=== PATIENT | female | born 1955 | race Caucasian/White ===

== ENCOUNTER 2019-08-01 14:38 | Outpatient (CLI) | payer MEDICARE, OTHER, SELFPAY ==
--- NOTE | 2019-08-01 14:47 | XR_ITS ---
WS: [id number] LEFT KNEE: 3 VIEW(S) TECHNIQUE: AP, oblique(s) and lateral. HISTORY: PAIN IN LEFT KNEE COMPARISON: None available. No fracture or dislocation. Mild narrowing of the medial and patellofemoral joint spaces. Small hypertrophic osteophytes along th e joint lines. No joint effusion. Curvilinear calcification the soft tissues posterior to the knee. Vascular calcification. XR/XR knee LT 3V* [id number] IMPRESSION: Mild medial and patellofemoral osteoarthritis. No fracture identified.
== END 2019-08-01 14:39 | disposition home or self-care (01) ==
LOC: RADWPI 14:45
PROVIDERS: Family Provider Family Medicine; PCP Family Medicine; Visit Provider Family Medicine
DX: M25.562 Pain in left knee (principal); M17.12 Unilateral primary osteoarthritis, left knee
CPT/HCPCS: 73562

== ENCOUNTER 2019-12-12 14:04 | Outpatient (CLI) | payer MEDICARE, OTHER, SELFPAY ==
--- NOTE | 2019-12-12 14:14 | MM_ITS ---
WS: [id number] BILATERAL SCREENING DIGITAL MAMMOGRAM WITH CAD HISTORY: SCREENING COMPARISON: 09/01/2018 and 07/03/2017 and 05/02/2016 Bilateral CC and MLO views submitted. Computer aided detection analyzed. Breast composition: There are scattered areas of fibroglandular density. No suspicious masses, microc alcifications or architectural distortion. Bilateral breast arterial calcifications. MM/[place] [id number] IMPRESSION: BI-RADS: 2-Benign FOLLOW UP: 1 Year Follow-up
== END 2019-12-12 14:05 | disposition home or self-care (01) ==
LOC: RADSHAW 14:08
PROVIDERS: PCP Family Medicine; Visit Provider Family Medicine
DX: Z12.31 Encounter for screening mammogram for malignant neoplasm of breast (principal)
CPT/HCPCS: 77067

== ENCOUNTER 2021-01-03 08:40 | Outpatient (CLI) | payer MEDICARE, OTHER, SELFPAY ==
--- NOTE | 2021-01-03 08:45 | MM_ITS ---
WS: [email or web address] BILATERAL SCREENING DIGITAL MAMMOGRAM WITH CAD HISTORY: SCREENING COMPARISON: 12/12/2019, 09/01/2018, 07/03/2017 Bilateral CC and MLO views submitted. Computer aided detection analyzed. Breast composition: There are scattered areas of fibroglandular density. No suspicious masses, microc alcifications or architectural distortion. Benign breast arterial calcifications within each breast. No change in the parenchymal pattern. MM/[place] [id number] IMPRESSION: BI-RADS: 2-Benign FOLLOW UP: 1 Year Follow-up
== END 2021-01-03 08:41 | disposition home or self-care (01) ==
LOC: RADSHAW 08:42
PROVIDERS: PCP Family Medicine; Visit Provider Family Medicine
DX: Z12.31 Encounter for screening mammogram for malignant neoplasm of breast (principal)
CPT/HCPCS: 77067

== ENCOUNTER 2021-04-22 09:45 | Outpatient (CLI) | payer MEDICARE, OTHER, SELFPAY ==
--- NOTE | 2021-04-22 10:01 | XR_ITS ---
WS: [id number] Exam: XR DEXA axial skeleton* [id number] Date/Time of Exam: 04/22/2021 10:07 AM Reason For Exam: ASYMPTOMATIC MENOPAUSAL STATE DEXA BONE DENSITOMETRY [employer] The L1-L4 bone mineral density measures 1.244 g/cm2. This corresponds to a T score of 0.5 and Z score of 2.1. Left femoral neck bone mineral density measures 0.945 g/cm2. This corresponds to T score of -0.5 and Z score of 0.8. Right femoral neck bone mineral density measures 0.928 g/cm2. This corresponds to a T score of -0.6 a nd Z score of 0.7. Mean femoral neck bone mineral density measures 0.936 g/cm2. This corresponds to a T score of -0.6 an d Z score of 0.7. XR/XR DEXA axial skeleton* [id number] IMPRESSION: Bone mineral density lies in the normal range. No osteopenia is observed at th is time. Refer to detailed summary.
== END 2021-04-22 09:46 | disposition home or self-care (01) ==
LOC: RAD 09:49
PROVIDERS: PCP Family Medicine; Visit Provider Family Medicine
DX: Z78.0 Asymptomatic menopausal state (principal)
CPT/HCPCS: 77080

== ENCOUNTER 2022-01-13 08:37 | Outpatient (CLI) | payer MEDICARE, OTHER, SELFPAY ==
--- NOTE | 2022-01-13 08:48 | MM_ITS ---
WS: [email or web address] SCREENING DIGITAL BREAST TOMOSYNTHESIS MAMMOGRAM WITH CAD HISTORY: SCREENING COMPARISON: 01/03/2021, 12/12/2019 and 09/01/2018 Bilateral CC and MLO with tomosynthesis and synthetic mammography submitted. Computer aided detection analyzed. Breast composition: There are scattered areas of fibroglandular density. Very subtle asymmetry in the central posterior RIGHT breast measures 6 mm. Suspect superimposed fibroglandular tissue. Only seen on the RIGHT CC projection. Benign breast arterial calcifications. MM/[place] [id number] IMPRESSION: BI-RADS: 0-Incomplete: Need additional imaging evaluation FOLLOW UP: Need Additional Imaging RIGHT breast: Spot compression views (CC ). True ML. Ultrasound to follow if ab normality persists.
== END 2022-01-13 08:38 | disposition home or self-care (01) ==
LOC: RAD 08:39
PROVIDERS: PCP Family Medicine; Visit Provider Family Medicine
DX: Z12.31 Encounter for screening mammogram for malignant neoplasm of breast (principal)
CPT/HCPCS: 77063; 77067

== ENCOUNTER 2022-02-06 09:02 | Outpatient (CLI) | payer MEDICARE, OTHER, SELFPAY ==
--- NOTE | 2022-02-06 09:08 | US_ITS ---
WS: [email or web address] ULTRASOUND RIGHT BREAST HISTORY: ABNORMAL MAMMO COMPARISON: Prior mammograms 02/06/2022, 01/13/2022, 01/03/2021 TECHNIQUE: 2-D and Doppler. No solid mass or shadowing within the RIGHT breast to suggest a neoplasm. There are a few scattered m inimal areas of decreased echogenicity which are very similar to the adjacent breast tissue. Normal c onfiguration with no increased vascularity. US/US breast RT limited* [id number] IMPRESSION: BI-RADS: 2-Benign FOLLOW-UP: 1 Year Follow-up
--- NOTE | 2022-02-06 09:08 | MM_ITS ---
WS: [email or web address] ADDITIONAL VIEWS RIGHT MAMMOGRAM WITH DIGITAL BREAST TOMOSYNTHESIS. HISTORY: ABNORMAL MAMMO COMPARISON: 01/13/2022, 01/03/2021 and 12/12/2019 RIGHT MAMMOGRAM: Spot compression views and true ML with digital breast tomosynthesis and SM. The asymmetry seen only on the RIGHT CC projection resolves with additional imaging. There is no pers istent mass or distortion. This was likely superimposed fibroglandular density. There are also benign arterial calcifications. MM/[place] [id number] IMPRESSION: BI-RADS: 2-Benign FOLLOW UP: 1 Year Follow-up Asymmetry in the RIGHT breast resolves with additional imaging. Return to annua l screening mammography.
== END 2022-02-06 09:03 | disposition home or self-care (01) ==
LOC: RAD 09:05
PROVIDERS: PCP Family Medicine; Visit Provider Family Medicine
DX: R92.8 Other abnormal and inconclusive findings on diagnostic imaging of breast (principal)
CPT/HCPCS: 76642; 77061; G0279

== ENCOUNTER 2023-02-12 08:11 | Outpatient (CLI) | payer MEDICARE, OTHER, SELFPAY ==
--- NOTE | 2023-02-12 08:15 | MM_ITS ---
WS: [email or web address] BILATERAL 3D TOMOSYNTHESIS DIGITAL SCREENING MAMMOGRAPHY WITH CAD CLINICAL INFORMATION: SCREENING HISTORY: Screening mammogram. No current complaints. COMPARISON: 01/13/2022, 01/13/2021, and 12/12/2019 TECHNIQUE: Bilateral CC and MLO views. FINDINGS: Scattered fibroglandular densities bilaterally. No suspicious focal mass, asymmetry, calcifications, or architectural distortion. No evidence of malignancy. A few benign incidental punctate and lucent c entered calcifications. Vascular calcification. IMPRESSION: MM/[place] [id number] BI-RADS: 2-Benign FOLLOW UP: 1 Year Follow-up Recommend return to annual screening mammography.
--- NOTE | 2023-02-12 14:36 | XR_ITS ---
WS: [email or web address] Exam: XR chest 2V* [id number] Date/Time of Exam: 02/12/2023 2:42 PM Reason For Exam: PNEUMONITIS DUE TO INHALATION OF FOOD VOMIT No priors. The lungs are fully expanded and clear. Normal cardiomediastinal silhouette. Small hiatal hernia note d. No pleural effusions. Bony structures are intact. Mild spondylosis of the T-spine. Atherosclerotic plaquing of the aorta. IMPRESSION: 1. No acute process noted. 2. Small hiatal hernia.
== END 2023-02-12 08:12 | disposition home or self-care (01) ==
PROVIDERS: PCP Family Medicine; Visit Provider Family Medicine
DX: Z12.31 Encounter for screening mammogram for malignant neoplasm of breast (principal); J69.0 Pneumonitis due to inhalation of food and vomit; K44.9 Diaphragmatic hernia without obstruction or gangrene
CPT/HCPCS: 71046; 77063; 77067

== ENCOUNTER 2024-02-18 13:35 | Outpatient (CLI) | payer MEDICARE, OTHER, SELFPAY ==
--- NOTE | 2024-02-18 13:39 | XR_ITS ---
WS: [email or web address] SCREENING DEXA SCAN [employer] CLINICAL INFORMATION: ASYMPTOMATIC MENOPAUSAL STATE COMPARISON: 2021 FINDINGS: The L1-L4 bone mineral density measures 1.186 g/cm2. This corresponds to a T score score of 0.0 and Z score of 1.6. Left femoral neck bone mineral density measures 0.932 g/cm2. This corresponds to a T score of -0.6 an d Z score of 0.8. Right femoral neck bone mineral density measures 0.923 g/cm2. This corresponds to a T score -0.7of an d Z score of 0.8. Mean femoral neck bone mineral density measures 0.927 g/cm2. This corresponds to a T score of -0.6 an d Z score of 0.8. XR/XR DEXA axial skeleton* [id number] IMPRESSION: Normal bone mineralization. Patient's FRAX calculated 10 year probability for major osteoporotic fracture i s 9.9% and osteoporotic hip fracture is 1.4%. Bone mineral density lumbar spine decreased -4.7% Bone mineral density femoral necks decreased -1.0%
--- NOTE | 2024-02-18 13:39 | MM_ITS ---
WS: [email or web address] BILATERAL SCREENING DIGITAL TOMOSYNTHESIS MAMMOGRAM WITH CAD HISTORY: SCREENING COMPARISON: 07/03/2017, 09/01/2018, 01/13/2022 and 02/12/2023 Bilateral CC and MLO views with tomosynthesis and synthetic mammography submitted. Computer aided det ection analyzed. Breast composition: There are scattered areas of fibroglandular density. No suspicious masses, microc alcifications or architectural distortion. Focal asymmetry seen in the posterior RIGHT breast on the CC projection only has been present since at least 2018. Benign breast arterial calcifications. MM/MM scr tomosynthesis [id number] IMPRESSION: BI-RADS: 2 - Benign. FOLLOW UP: 1 Year Follow-up
== END 2024-02-18 13:36 | disposition home or self-care (01) ==
LOC: RAD 13:37
PROVIDERS: PCP Family Medicine; Visit Provider Family Medicine
DX: Z12.31 Encounter for screening mammogram for malignant neoplasm of breast (principal); R92.323 Mammographic fibroglandular density, bilateral breasts; N64.89 Other specified disorders of breast; R92.1 Mammographic calcification found on diagnostic imaging of breast; Z13.820 Encounter for screening for osteoporosis; Z78.0 Asymptomatic menopausal state
CPT/HCPCS: 77063; 77067; 77080